=== PATIENT | female | born 1980 | race Caucasian/White ===

== ENCOUNTER 2020-06-22 15:37 | Emergency (ER) | payer BC ==
[~2020-06-22] VITALS: Ht 175.3 cm; Wt 69.4 kg
[~2020-06-22 15:37] MED LIST: BACLOFEN 10MG T10 MG PO; BENTYL10 MG PO; CARAFATE 1 GM TA1 G1 PO; COLESTIPOL HCL1 G1 PO; HYDROCODON-ACE1 EAC5 PO; HYDROCODON-ACE1 EAC7 PO; LIMBREL 500 MG500 MG PO; NEXIUM 40 MG CA40 M1 PO; NORCO 5-325 TA1 EACH PO; PAROXETINE HC12.5 MG PO; PAXIL CR12.5 MG; PHENERGAN 25 MG25 M1 PO; POTASSIUM20 PO; PROPRANOLOL 1010 MG PO; XANAX 0.25 MG0.25 MG PO; ZEGERID 40 MG1 EACH PO; ZEGERID OTC 201 EACH PO
[2020-06-22] MEDS ORDERED: BIMATOPROST5 ML (16:03)
[2020-06-22] MEDS ORDERED: PAROXETINE ER12.5 M2 PO (16:04)
[2020-06-22 16:20] LABS: URINE BILIRUBIN NEGATIVE (Negative); URINE BLOOD TRACE (Negative); URINE CLARITY CLEAR; URINE COLOR YELLOW; URINE GLUCOSE-RANDOM* NEGATIVE (Negative); URINE KETONES NEGATIVE (Negative); URINE LEUKOCYTES-REFLEX NEGATIVE (Negative); URINE NITRITE-REFLEX NEGATIVE (Negative); URINE PROTEIN (DIPSTICK) NEGATIVE (Negative); URINE UROBILINOGEN 0.2 E.U./dl (0.2-1.0)
[2020-06-22 16:27] LABS: ABSOLUTE NEUTROPHILS 2.1 thou/uL (1.4-8.2); HEMATOCRIT 42.8 % (37.0-47.0); HEMOGLOBIN 15.1 gm/dL (12.0-15.0); LYMPHOCYTES 43.8 % (24.0-44.0); MCH 30.8 pg (26.0-34.0); MCHC 35.3 g/dL (28.0-37.0); MCV 87.4 fL (80.0-100.0); MONOCYTES 11.4 % (1.0-8.0); PLATELET COUNT 282 thou/uL (150-400); POLYS 42.8 % (36.0-66.0); RDW 12.6 % (10.5-14.5)
[2020-06-22 16:31] LABS: CALCIUM 9.1 mg/dL (8.5-10.1); CREATININE 0.8 mg/dL (0.6-1.0); POTASSIUM 3.2 mmol/L (3.5-5.1)
[2020-06-22 16:39] LABS: ALBUMIN 4.2 g/dL (3.4-5.0); DIRECT BILIRUBIN 0.1 mg/dL (<0.1-0.2); TOTAL BILIRUBIN 0.7 mg/dL (0.2-1.0); TOTAL PROTEIN 7.6 g/dL (6.4-8.2)
[2020-06-22 19:03] VITALS: BP 105/64
--- NOTE | 2020-06-23 10:17 | EKG ---
[facility] [address] [place] [address] ELECTROCARDIOGRAM REPORT Name: MERVIN MERAZ Room #: DEP [facility]#: [id number] Admission: 06/22/20 Attend Phys: Discharge: 06/22/20 Date of : 78 Report #: [id number] THIS REPORT FOR: cc: Ricardo Mckeon Russell J. DO Lundgren, Craig H. MD [facility] THIS REPORT FOR: //name// [facility] ED Test Date: 2020-06-22 Test Time: 15:56:51 Pat Name: MERVIN MERAZ Department: Room: Gender: Occupational Health Physician: : 1980 Requested By: Flakita Reyna Order Number: [id number] MD: Maco Narayan Measurements Intervals [place] Rate: 95 P: 30 FL: 149 QRS: 30 QRSD: 85 T: 45 QT: 350 QTc: 440 Interpretive Statements Sinus rhythm Normal tracing Compared to ECG 12/13/2016 16:35:46 No significant changes Electronically Signed On 06-23-2020 10:17:16 CDT by Maco Narayan [email or web address] <ELECTRONICALLY SIGNED> By: Maco Narayan MD, FACC 06/23/20 1017 [id number] 1556 Maco Narayan MD, [facility] /EPI
== END 2020-06-22 19:05 | disposition home or self-care (01) ==
LOC: ER 15:37
PROVIDERS: Emergency Medicine
DX: I49.8 Other specified cardiac arrhythmias (principal); R20.0 Anesthesia of skin; E87.6 Hypokalemia; R00.2 Palpitations; R42 Dizziness and giddiness; F17.210 Nicotine dependence, cigarettes, uncomplicated; Z90.711 Acquired absence of uterus with remaining cervical stump; Z90.49 Acquired absence of other specified parts of digestive tract; Z79.899 Other long term (current) drug therapy; Z88.8 Allergy status to other drugs, medicaments and biological substances; Z88.1 Allergy status to other antibiotic agents; Z88.5 Allergy status to narcotic agent